=== PATIENT | female | born 1995 | race Caucasian/White ===

== ENCOUNTER 2019-03-14 05:08 | Emergency (ER) | payer BC ==
[2019-03-14] MEDS ORDERED: Ketorolac 30 MG/ML SDV IM ONE (05:23)
[2019-03-14] MEDS ORDERED: diphenhydrAMINE 50 MG/ML SDV IVPUSH ONE (05:23)
[2019-03-14] MEDS ORDERED: Ondansetron 4 MG/2 ML SDV IVPUSH ONE (05:24)
[2019-03-14] MEDS ORDERED: Sodium Chloride 0.9% 1,000 ML IV SCH (05:30)
--- NOTE | 2019-03-14 05:44 | EDM.PDOC ---
ED HPI GENERAL MEDICAL PROBLEM - General Chief Complaint: Headache Stated Complaint: headache Time Seen by Provider: 03/14/19 05:15 Source of Information: Reports: Patient History Limitations: Reports: No Limitations - History of Present Illness INITIAL COMMENTS - FREE TEXT/NARRATIVE: Pt with migraine GONSALEZ Has hx/o migraine GONSALEZ Did have emesis at home Onset: Gradual Duration: Day(s): Location: Reports: Head Context: Reports: Other (Hx/o migraines) - Related Data Allergies Allergy/AdvReac Type Severity Reaction Status Date / Time No Known Allergies Allergy Verified 03/14/19 05:11 Home Meds: Home Meds Acetaminophen [Tylenol Extra Strength] 2 tab PO Q4HR PRN 03/14/19 [History] Metoclopramide HCl 10 mg PO Q4HR PRN 03/14/19 [History] ED ROS GENERAL - Review of Systems Review Of Systems: See Below HEENT: Reports: No Symptoms Respiratory: Reports: No Symptoms Cardiovascular: Reports: No Symptoms GI/Abdominal: Reports: No Symptoms Neurological: Reports: Headache - Physical Exam Exam: See Below Exam Limited By: No Limitations General Appearance: Mild Distress Neuro Exam (Abbreviated): Alert, Oriented, No Motor/Sensory Deficits, Other ( Photophobia) Psychiatric: Normal Affect, Normal Mood Course - Orders/Labs/Meds Orders: Active Orders 24 hr Category Date Time Status Sodium Chloride 0.9% [Normal Saline] 1,000 ml Med 03/14/19 05:30 Active IV ASDIRECTED Medication Orders Sodium Chloride (Normal Saline) 1,000 mls @ 999 mls/hr IV ASDIRECTED CESAR Stop: 03/18/19 05:25 Meds: Medications Generic Name Dose Route Start Last Admin Trade Name Freq PRN Reason Stop Dose Admin Sodium Chloride 1,000 mls @ 999 mls/hr 03/14/19 05:30 Normal Saline IV 03/18/19 05:25 ASDIRECTED CESAR Discontinued Medications Generic Name Dose Route Start Last Admin Trade Name Freq PRN Reason Stop Dose Admin Diphenhydramine HCl 50 mg 03/14/19 05:23 Benadryl IVPUSH 03/14/19 05:24 ONETIME ONE Ketorolac Tromethamine 30 mg 03/14/19 05:23 Toradol IM 03/14/19 05:24 ONETIME ONE Ondansetron HCl 4 mg 03/14/19 05:24 Zofran IVPUSH 03/14/19 05:25 ONETIME ONE - Re-Assessments/Exams Free Text/Narrative Re-Assessment/Exam: 03/14/19 05:43 Pt given IVF, IV Zofran, IV Toradol and IV Benadryl in ER Departure - Departure Time of Disposition: 06:45 Disposition: Home, Self-Care 01 Clinical Impression: Migraine - Discharge Information *PRESCRIPTION DRUG MONITORING PROGRAM REVIEWED*: Not Applicable *COPY OF PRESCRIPTION DRUG MONITORING REPORT IN PATIENT SHIV: Not Applicable Instructions: Migraine Headache, [id number] Referrals: Marley Ambrocio NP [Primary Care Provider] - - My Orders Last 24 Hours: My Active Orders 03/14/19 05:30 Sodium Chloride 0.9% [Normal Saline] 1,000 ml IV ASDIRECTED - Assessment/Plan Last 24 Hours: My Active Orders 03/14/19 05:30 Sodium Chloride 0.9% [Normal Saline] 1,000 ml IV ASDIRECTED
== END 2019-03-14 06:45 | disposition home or self-care (01) ==
LOC: LL.ED 05:08
DX: G43.909 Migraine, unspecified, not intractable, without status migrainosus (principal)
CPT/HCPCS: 96361; 96372; 96374; 96375; 99283-25; J1200; J1885; J2405; J7030

== ENCOUNTER 2021-11-24 03:09 | Emergency (ER) | payer BC ==
[2021-11-24] MEDS ORDERED: Sodium Chloride 0.9% 10 ML Syringe FLUSH PRN (03:37)
[2021-11-24] MEDS ORDERED: diphenhydrAMINE 50 MG/ML SDV IVPUSH ONE (03:37)
[2021-11-24] MEDS ORDERED: Metoclopramide 10 MG/2 ML SDV IVPUSH ONE (03:38)
[2021-11-24] MEDS ORDERED: Ketorolac 30 MG/ML SDV IM ONE (03:38)
== END 2021-11-24 04:24 | disposition home or self-care (01) ==
LOC: LL.ED 03:09
DX: G43.109 Migraine with aura, not intractable, without status migrainosus (principal); F17.210 Nicotine dependence, cigarettes, uncomplicated
CPT/HCPCS: 96372; 96374; 96375; 99283; J1200; J1885; J2765; J3490

== ENCOUNTER 2022-12-15 05:26 | Emergency (ER) | payer BC ==
[2022-12-15] MEDS: Ketorolac 15 MG/ML SDV IVPUSH ONE (06:09)
[2022-12-15] MEDS: diphenhydrAMINE 50 MG/ML SDV IVPUSH ONE (06:12)
[2022-12-15] MEDS: Sodium Chloride 0.9% 1,000 ML IV ONE (06:15)
[2022-12-15] MEDS: SUMAtriptan 6 MG/0.5 ML SDV SUBCUT ONE (06:17)
[2022-12-15] MEDS: Sodium Chloride 0.9% 10 ML Syringe FLUSH PRN (06:20)
[2022-12-15] MEDS: Ondansetron 4 MG/2 ML SDV IVPUSH ONE (06:22)
== END 2022-12-15 07:30 | disposition home or self-care (01) ==
LOC: LL.ED 05:26
DX: G43.909 Migraine, unspecified, not intractable, without status migrainosus (principal)
CPT/HCPCS: 96372; 96374; 96375; 99283; J1200; J1885; J2405; J3030; J7030; J3490